=== PATIENT | male | born 1950 | race Caucasian/White ===

== ENCOUNTER 2023-01-06 16:02 | Emergency (ER) | payer OTHER ==
[~2023-01-06] VITALS: Ht 177.8 cm; Wt 102.1 kg
[~2023-01-06 16:02] MED LIST: ASCORBIC ACID500 M3 PO; ASCORBIC ACID500 MG PO; ASPIRIN EC325 MG PO; ASPIRIN EC81 MG PO; B-12500 MCG PO; DICLOFENAC SODI75 MG PO; DILTIAZEM 24HR240 MG PO; FERROUS SULFAT325 MG PO; HYDROCHLOROTHIA25 MG PO; IBUPROFEN600 MG PO; KLOR-CON 1010 MEQ PO; LISINOPRIL10 MG PO; METOPROLOL TART50 MG PO; ONE DAILY1 EACH PO; PRADAXA150 MG PO; TOPROL XL50 MG PO; TORSEMIDE10 MG PO; TRAMADOL HCL50 MG PO; VITAMIN B-12500 MCG PO; VITAMIN D1000 UNI1 PO; VITAMIN E400 UNI2 PO
[2023-01-06 16:23] LABS: BASOPHILS 1.2 % (0-2); HEMATOCRIT 44.4 % (35.0-50.0); HEMOGLOBIN 15.2 g/dL (12.0-18.0); LYMPHOCYTES 30.8 % (24-44); MCH 32.1 (27-36); MCHC 34.3 g/dl (30-36); MCV 93.8 fl (81-99); MONOCYTES 6.2 % (0-12); NEUTROPHILS 55.8 % (39-80); PLATELET COUNT 188 K/uL (140-440); RBC 4.74 M/ul (4.3-5.7); RDW 14.2 (10.5-15.0)
[2023-01-06 16:39] LABS: ALBUMIN 3.8 g/dL (3.4-5.0); ALBUMIN/GLOBULIN RATIO 1.09 (1.1-2.4); ANION GAP 15.5 (7-21); BILIRUBIN, TOTAL 0.7 ng/dL (0.2-1.0); BUN/CREATININE RATIO 10.83 (6.0-28.6); CREATININE, SERUM 1.2 mg/dL (0.70-1.30); POTASSIUM 3.5 mmol/L (3.5-5.1); PROTEIN, TOTAL 7.3 g/dL (6.4-8.2)
[2023-01-06 16:55] LABS: AMPHETAMINES, UR NEGATIVE (NEGATIVE); BARBITURATES, UR NEGATIVE (NEGATIVE); BENZODIAZEPINES, UR NEGATIVE (NEGATIVE); BUPRENORPHINE,UR NEGATIVE (NEGATIVE); COCAINE, UR NEGATIVE (NEGATIVE); MARIJUANA (THC), UR POSITIVE (NEGATIVE); MDMA, UR NEGATIVE (NEGATIVE); METHADONE, UR NEGATIVE (NEGATIVE); METHAMPHETAMINE, UR NEGATIVE (NEGATIVE); OPIATES, UR NEGATIVE (NEGATIVE); OXYCODONE, UR NEGATIVE (NEGATIVE); PHENCYCLIDINE, UR NEGATIVE (NEGATIVE); TRICYCLIC ANTIDEPRESSANT, UR NEGATIVE (NEGATIVE)
[2023-01-06 16:56] LABS: BILIRUBIN, URINE NEGATIVE (negative); BLOOD/HGB, URINE NEGATIVE (Negative); KETONE, URINE NEGATIVE (Negative); LEUK ESTERASE, URINE NEGATIVE (negative); NITRITE, URINE NEGATIVE (negative); PH, URINE 5.5 (5-7)
[2023-01-06 19:08] VITALS: BP 130/98
== END 2023-01-06 19:19 | disposition home or self-care (01) ==
LOC: ED 16:02
PROVIDERS: Emergency Medicine
DX: F10.129 Alcohol abuse with intoxication, unspecified (principal); S00.01XA Abrasion of scalp, initial encounter; W19.XXXA Unspecified fall, initial encounter; I10 Essential (primary) hypertension; I25.2 Old myocardial infarction; F17.200 Nicotine dependence, unspecified, uncomplicated; Z79.899 Other long term (current) drug therapy; Z79.82 Long term (current) use of aspirin
CPT/HCPCS: 36415; 70450; 80053; 81003; 85025; 96374; 99284-25; G0480; J2250; J7040